=== PATIENT | female | born 1950 | race American Indian/Alaskan Native ===

== ENCOUNTER 2018-07-12 16:23 | Emergency (ER) | payer OTHER ==
[~2018-07-12] VITALS: Ht 162.6 cm; Wt 60.0 kg
[2018-07-12] MEDS ORDERED: IBUPROFEN 600MG TABLET PO ONE (19:15)
[2018-07-12] MEDS ORDERED: ACETAMINOPHEN 325MG TABLET PO ONE (19:15)
[2018-07-12 20:00] VITALS: BP 128/75
== END 2018-07-12 20:01 | disposition home or self-care (01) ==
LOC: ER 16:23
DX: S16.1XXA Strain of muscle, fascia and tendon at neck level, initial encounter (principal); S40.022A Contusion of left upper arm, initial encounter; M48.02 Spinal stenosis, cervical region; M47.892 Other spondylosis, cervical region; R03.0 Elevated blood-pressure reading, without diagnosis of hypertension; V13.4XXA Pedal cycle driver injured in collision with car, pick-up truck or van in traffic accident, initial encounter; Y93.89 Activity, other specified; Y92.488 Other paved roadways as the place of occurrence of the external cause
CPT/HCPCS: 73080; 73090; 99284